=== PATIENT | male | born 1950 | race Caucasian/White ===

== ENCOUNTER → 2023-10-19 06:42 | Outpatient (REF) | payer MEDICARE, BC, SELFPAY ==
[2023-10-19 07:26] LABS: % Basophils 1.4 % (0-2); % Eosinophils 4.8 % (0-6); % Immature Granulocytes 0.2 % (0-0.5); % Lymphocytes 26.1 % (20.5-51.1); % Monocytes 10.9 % (1.7-9.3); % Neutrophils 56.6 % (42.2-75.2); Absolute Basophils 0.1 10^3/uL (0-0.2); Absolute Eosinophils 0.2 10^3/uL (0-0.7); Absolute Lymphocytes 1.3 10^3/uL (1.2-3.4); Absolute Monocytes 0.6 10^3/uL (0.1-0.6); Absolute Neutrophils 2.9 10^3/uL (1.4-6.5); Hematocrit 37.5 % (39.0-52.0); Hemoglobin 12.7 g/dL (13.0-18.0); Mean Corp Hgb Conc. 33.9 g/dL (33.0-37.0); Mean Corpuscular Hgb 30.6 pg (27.0-31.0); Mean Corpuscular Volume 90.4 fL (80.0-94.0); Mean Platelet Volume 11.4 fL (7.4-10.4); Nucleated Red Blood Cells % 0 % (-); Platelet Count 147 10^3/uL (130-400); Red Blood Cell Count 4.15 10^6/uL (4.70-6.10); Red Cell Dist. Width 12.4 % (11.5-14.5); White Blood Cell Count 5.1 10^3/uL (4.8-10.8)
[2023-10-19 08:16] LABS: ALT (SGPT) 19 U/L (0-50); AST (SGOT) 24 U/L (17-59); Albumin 3.9 g/dl (3.5-5.0); Alkaline Phosphatase 86 U/L (38-126); Blood Urea Nitrogen 21 mg/dl (9-20); Calcium 8.8 mg/dl (8.4-10.2); Carbon Dioxide 29 mmol/L (22-30); Chloride 103 mmol/L (98-107); Glucose 124 mg/dl (70-99); HDL Cholesterol 40 mg/dl; LDL Cholesterol, Calculated 102 mg/dl; Potassium 4.1 mmol/L (3.5-5.1); Sodium 137 mmol/L (135-145); Total Bilirubin 1.3 mg/dl (0.2-1.3); Total Cholesterol 163 mg/dl (50-199); Total Protein 6.4 g/dl (6.3-8.2); Triglyceride 106 mg/dl (10-149); Very Low Density Lipoprotein 21 mg/dl (0-30); eGFR 58.73
[2023-10-19 08:35] LABS: TSH Reflex To Free T4 1.98 uIU/ml (0.47-4.68)
[2023-10-19 08:59] LABS: Glycohemoglobin (HgbA1c) 6.8 % (4.0-5.6)
[2023-10-19 10:40] LABS: Microalbumin, Random Urine 2.2 mg/dl (0.6-1.7); Microalbumin/creatinine Ratio 16.2 mg/g
[2023-10-20 14:56] LABS: Iron 92 ug/dl (49-181)
[2023-10-20 15:05] LABS: Percent Saturation 32 % (20-50); Total Iron Binding Capacity 281 ug/dl (261-462)
[2023-10-20 15:33] LABS: Ferritin 40.7 ng/ml (17.9-464.0)
[2023-10-20 15:48] LABS: Vitamin B12 275 pg/ml (239-931)
[2023-10-20 17:09] LABS: Folate 4.9 ng/ml (2.76-20)
== END ==
LOC: REG 06:42
PROVIDERS: ATTENDING PHYSICIAN Registered Nurse
DX: E21.3 Hyperparathyroidism, unspecified (principal); E11.29 Type 2 diabetes mellitus with other diabetic kidney complication; E78.2 Mixed hyperlipidemia; I10 Essential (primary) hypertension; D64.9 Anemia, unspecified; Z79.899 Other long term (current) drug therapy
CPT/HCPCS: 36415; 80053; 80061; 82043; 82570; 82607; 82728; 82746; 83036; 83540; 83550; 84443; 85025

== ENCOUNTER → 2023-12-22 12:11 | Outpatient (REF) | payer MEDICARE, BC, SELFPAY ==
[2023-12-22 14:07] LABS: % Basophils 0.5 % (0-2); % Eosinophils 1.2 % (0-6); % Immature Granulocytes 0.3 % (0-0.5); % Lymphocytes 19.1 % (20.5-51.1); % Monocytes 13.3 % (1.7-9.3); % Neutrophils 65.6 % (42.2-75.2); Absolute Eosinophils 0.1 10^3/uL (0-0.7); Absolute Lymphocytes 1.2 10^3/uL (1.2-3.4); Absolute Monocytes 0.8 10^3/uL (0.1-0.6); Hematocrit 40.8 % (39.0-52.0); Hemoglobin 13.5 g/dL (13.0-18.0); Mean Corp Hgb Conc. 33.1 g/dL (33.0-37.0); Mean Corpuscular Hgb 30.1 pg (27.0-31.0); Mean Corpuscular Volume 90.9 fL (80.0-94.0); Mean Platelet Volume 11.4 fL (7.4-10.4); Nucleated Red Blood Cells % 0 % (-); Platelet Count 165 10^3/uL (130-400); Red Blood Cell Count 4.49 10^6/uL (4.70-6.10); Red Cell Dist. Width 12.5 % (11.5-14.5)
[2023-12-22 14:47] LABS: ALT (SGPT) 20 U/L (0-50); AST (SGOT) 23 U/L (17-59); Albumin 4.3 g/dl (3.5-5.0); Alkaline Phosphatase 85 U/L (38-126); Blood Urea Nitrogen 18 mg/dl (9-20); Calcium 9.4 mg/dl (8.4-10.2); Carbon Dioxide 33 mmol/L (22-30); Chloride 99 mmol/L (98-107); Glucose 107 mg/dl (70-99); Potassium 4.6 mmol/L (3.5-5.1); Sodium 136 mmol/L (135-145); Total Protein 7.1 g/dl (6.3-8.2); eGFR 58.37
== END ==
LOC: RAD 12:11
PROVIDERS: ATTENDING PHYSICIAN Nurse Practitioner Adult Health
DX: R05.1 Acute cough (principal); R06.02 Shortness of breath; J02.9 Acute pharyngitis, unspecified; R68.89 Other general symptoms and signs
CPT/HCPCS: 36415; 71046; 80053; 85025

== ENCOUNTER → 2024-02-16 08:00 | Outpatient (REF) | payer MEDICARE, BC, SELFPAY ==
[2024-02-16 08:43] LABS: % Basophils 1.3 % (0-2); % Eosinophils 3.6 % (0-6); % Immature Granulocytes 0.2 % (0-0.5); % Lymphocytes 25.9 % (20.5-51.1); % Monocytes 11.1 % (1.7-9.3); % Neutrophils 57.9 % (42.2-75.2); Absolute Basophils 0.1 10^3/uL (0-0.2); Absolute Eosinophils 0.2 10^3/uL (0-0.7); Absolute Lymphocytes 1.2 10^3/uL (1.2-3.4); Absolute Monocytes 0.5 10^3/uL (0.1-0.6); Absolute Neutrophils 2.8 10^3/uL (1.4-6.5); Hemoglobin 13.3 g/dL (13.0-18.0); Mean Corp Hgb Conc. 34.1 g/dL (33.0-37.0); Mean Corpuscular Hgb 30.2 pg (27.0-31.0); Mean Corpuscular Volume 88.6 fL (80.0-94.0); Mean Platelet Volume 10.9 fL (7.4-10.4); Nucleated Red Blood Cells % 0 % (-); Platelet Count 179 10^3/uL (130-400); Red Cell Dist. Width 12.9 % (11.5-14.5); White Blood Cell Count 4.8 10^3/uL (4.8-10.8)
[2024-02-16 10:23] LABS: Albumin 4.2 g/dl (3.5-5.0); Blood Urea Nitrogen 25 mg/dl (9-20); Calcium 9.2 mg/dl (8.4-10.2); Carbon Dioxide 26 mmol/L (22-30); Chloride 105 mmol/L (98-107); Glucose 109 mg/dl (70-99); Phosphorus 3.4 mg/dl (2.5-4.5); Sodium 139 mmol/L (135-145)
[2024-02-16 11:11] LABS: Vitamin B12 870 pg/ml (239-931)
[2024-02-16 12:09] LABS: Urine Protein 5 mg/dl (0-12)
== END ==
LOC: REG 08:00
PROVIDERS: ATTENDING PHYSICIAN Internal Medicine; FAMILY PHYSICIAN Registered Nurse
DX: D64.9 Anemia, unspecified (principal); N18.1 Chronic kidney disease, stage 1
CPT/HCPCS: 36415; 80069; 82570; 82607; 84156; 85025

== ENCOUNTER → 2024-03-07 06:36 | Day surgery (SDC) | payer MEDICARE, BC, SELFPAY ==
[2024-03-07 08:24] LABS: Glucose - Point of Care 102 mg/dl (70-99)
== END ==
LOC: GI 06:36
PROVIDERS: ATTENDING PHYSICIAN Internal Medicine Gastroenterology; FAMILY PHYSICIAN Registered Nurse
DX: Z12.11 Encounter for screening for malignant neoplasm of colon (principal); D12.2 Benign neoplasm of ascending colon; Q43.8 Other specified congenital malformations of intestine; R11.0 Nausea; K29.50 Unspecified chronic gastritis without bleeding
CPT/HCPCS: 45380; 43239; 88305; 82962; 88342

== ENCOUNTER → 2024-04-02 06:41 | Outpatient (REF) | payer MEDICARE, BC, SELFPAY ==
[2024-04-02 08:03] LABS: % Basophils 1.2 % (0-2); % Eosinophils 4.5 % (0-6); % Immature Granulocytes 0.2 % (0-0.5); % Lymphocytes 22.3 % (20.5-51.1); % Monocytes 10.1 % (1.7-9.3); % Neutrophils 61.7 % (42.2-75.2); Absolute Basophils 0.1 10^3/uL (0-0.2); Absolute Eosinophils 0.2 10^3/uL (0-0.7); Absolute Lymphocytes 1.1 10^3/uL (1.2-3.4); Absolute Monocytes 0.5 10^3/uL (0.1-0.6); Hematocrit 36.6 % (39.0-52.0); Hemoglobin 12.7 g/dL (13.0-18.0); Mean Corp Hgb Conc. 34.7 g/dL (33.0-37.0); Mean Corpuscular Hgb 31.1 pg (27.0-31.0); Mean Corpuscular Volume 89.5 fL (80.0-94.0); Mean Platelet Volume 11.9 fL (7.4-10.4); Nucleated Red Blood Cells % 0 % (-); Platelet Count 166 10^3/uL (130-400); Red Blood Cell Count 4.09 10^6/uL (4.70-6.10); Red Cell Dist. Width 12.6 % (11.5-14.5); White Blood Cell Count 4.8 10^3/uL (4.8-10.8)
[2024-04-02 08:30] LABS: ALT (SGPT) 17 U/L (0-50); AST (SGOT) 23 U/L (17-59); Albumin 3.9 g/dl (3.5-5.0); Alkaline Phosphatase 81 U/L (38-126); Blood Urea Nitrogen 19 mg/dl (9-20); Calcium 9.4 mg/dl (8.4-10.2); Carbon Dioxide 27 mmol/L (22-30); Chloride 105 mmol/L (98-107); Glucose 116 mg/dl (70-99); HDL Cholesterol 31 mg/dl; LDL Cholesterol, Calculated 101 mg/dl; Potassium 4.4 mmol/L (3.5-5.1); Sodium 140 mmol/L (135-145); Total Bilirubin 1.3 mg/dl (0.2-1.3); Total Cholesterol 151 mg/dl (50-199); Total Protein 6.4 g/dl (6.3-8.2); Triglyceride 98 mg/dl (10-149); Very Low Density Lipoprotein 19 mg/dl (0-30)
[2024-04-02 09:00] LABS: TSH Reflex To Free T4 1.54 uIU/ml (0.47-4.68)
[2024-04-02 09:11] LABS: Vitamin D, 25-OH*** 48.5 ng/mL (30-80)
[2024-04-02 09:19] LABS: Vitamin B12 896 pg/ml (239-931)
[2024-04-02 10:56] LABS: Glycohemoglobin (HgbA1c) 6.4 % (4.0-5.6)
[2024-04-04 10:55] LABS: Intact PTH 90.1 pg/ml (13.6-85.8)
== END ==
LOC: REG 06:41
PROVIDERS: ATTENDING PHYSICIAN Registered Nurse
DX: E11.29 Type 2 diabetes mellitus with other diabetic kidney complication (principal); E21.3 Hyperparathyroidism, unspecified; I25.10 Atherosclerotic heart disease of native coronary artery without angina pectoris; N18.32 Chronic kidney disease, stage 3b; D64.9 Anemia, unspecified; E53.8 Deficiency of other specified B group vitamins
CPT/HCPCS: 36415; 80053; 80061; 82306; 82607; 83036; 83970; 84443; 85025

== ENCOUNTER 2024-09-05 06:23 | Day surgery (SDC) | payer MEDICARE, BC, SELFPAY ==
[2024-09-05 09:12] VITALS: BMI 24.9
[2024-09-05 09:14] VITALS: BP 144/58
[2024-09-05 09:38] LABS: Glucose - Point of Care 120 mg/dl (70-99)
[2024-09-05 11:54] VITALS: BP 113/48
[2024-09-05 12:00] VITALS: BP 124/56
[2024-09-05 12:15] VITALS: BP 132/55
[2024-09-05 12:26] VITALS: BP 136/42
== END 2024-09-05 12:34 | disposition home or self-care (01) ==
LOC: SDS 06:23
PROVIDERS: ATTENDING PHYSICIAN Internal Medicine Gastroenterology
DX: Q39.9 Congenital malformation of esophagus, unspecified (principal); R13.10 Dysphagia, unspecified
CPT/HCPCS: 43236; 82962; J0585

== ENCOUNTER → 2024-10-05 06:24 | Outpatient (REF) | payer MEDICARE, BC, SELFPAY ==
[2024-10-05 07:37] LABS: % Eosinophils 5.6 % (0-6); % Immature Granulocytes 0.3 % (0-0.5); % Lymphocytes 20.5 % (20.5-51.1); % Monocytes 10.2 % (1.7-9.3); % Neutrophils 62.4 % (42.2-75.2); Absolute Basophils 0.1 10^3/uL (0-0.2); Absolute Eosinophils 0.3 10^3/uL (0-0.7); Absolute Lymphocytes 1.2 10^3/uL (1.2-3.4); Absolute Monocytes 0.6 10^3/uL (0.1-0.6); Absolute Neutrophils 3.8 10^3/uL (1.4-6.5); Hematocrit 39.8 % (39.0-52.0); Hemoglobin 13.5 g/dL (13.0-18.0); Mean Corp Hgb Conc. 33.9 g/dL (33.0-37.0); Mean Corpuscular Hgb 29.7 pg (27.0-31.0); Mean Corpuscular Volume 87.7 fL (80.0-94.0); Mean Platelet Volume 11.8 fL (7.4-10.4); Nucleated Red Blood Cells % 0 % (-); Platelet Count 178 10^3/uL (130-400); Red Blood Cell Count 4.54 10^6/uL (4.70-6.10); Red Cell Dist. Width 12.6 % (11.5-14.5); White Blood Cell Count 6.1 10^3/uL (4.8-10.8)
[2024-10-05 08:08] LABS: ALT (SGPT) 23 U/L (0-50); AST (SGOT) 28 U/L (17-59); Albumin 4.4 g/dl (3.5-5.0); Alkaline Phosphatase 84 U/L (38-126); Blood Urea Nitrogen 27 mg/dl (9-20); Calcium 9.7 mg/dl (8.4-10.2); Carbon Dioxide 34 mmol/L (22-30); Chloride 98 mmol/L (98-107); Glucose 130 mg/dl (70-99); Potassium 4.5 mmol/L (3.5-5.1); Sodium 138 mmol/L (135-145); Total Bilirubin 1.8 mg/dl (0.2-1.3); Total Protein 7.4 g/dl (6.3-8.2)
[2024-10-05 08:46] LABS: Glycohemoglobin (HgbA1c) 7.1 % (4.0-5.6)
[2024-10-05 11:49] LABS: Microalbumin, Random Urine 1.9 mg/dl (0.6-1.7)
[2024-10-05 11:55] LABS: Microalbumin/creatinine Ratio 18.1 mg/g
== END ==
LOC: REG 06:24
PROVIDERS: ATTENDING PHYSICIAN Registered Nurse
DX: E11.29 Type 2 diabetes mellitus with other diabetic kidney complication (principal); N18.32 Chronic kidney disease, stage 3b
CPT/HCPCS: 36415; 80053; 82043; 82570; 83036; 85025

== ENCOUNTER 2025-03-06 08:15 | Inpatient (IN) | payer MEDICARE, BC, SELFPAY ==
[2025-03-04 19:15] VITALS: BP 134/49
[2025-03-04 19:21] VITALS: BP 147/57
[2025-03-04 19:45] LABS: Hematocrit 34.2 % (39.0-52.0); Hemoglobin 11.9 g/dL (13.0-18.0); Mean Corp Hgb Conc. 34.8 g/dL (33.0-37.0); Mean Corpuscular Volume 86.8 fL (80.0-94.0); Nucleated Red Blood Cells % 0 % (-); Platelet Count 155 10^3/uL (130-400); Red Cell Dist. Width 12.1 % (11.5-14.5)
[2025-03-04 20:03] LABS: ALT (SGPT) 21 U/L (0-50); AST (SGOT) 22 U/L (17-59); Albumin 4.1 g/dl (3.5-5.0); Alkaline Phosphatase 71 U/L (38-126); Blood Urea Nitrogen 18 mg/dl (9-20); Calcium 9.0 mg/dl (8.4-10.2); Carbon Dioxide 26 mmol/L (22-30); Chloride 103 mmol/L (98-107); Glucose 145 mg/dl (70-99); Potassium 3.6 mmol/L (3.5-5.1); Sodium 137 mmol/L (135-145); Total Protein 6.6 g/dl (6.3-8.2); eGFR 53.07
[2025-03-04 20:09] LABS: Troponin I < 0.012 ng/ml
[2025-03-04 22:23] VITALS: BP 131/54
--- NOTE | 2025-03-04 22:32 | ED.GENMED ---
History of Present Illness
General
Chief Complaint: Breathing Problem
Source: patient
Exam Limitations: none
Time Seen by Provider: 03/04/25 22:20
History of Present Illness
History of Present Illness:
See MDM
Past History
Past History
ED Past Medical History: CVA, HTN, Hypercholesterolemia and Other (Aortic Dissection)
ED Past Surgical History: Cardiac (Aortic dissection), Orthopedic and Other (Hernia)
Social History
Tobacco: Non-smoker
Personal:
Living: with family
Employment: Employed
Family History
Family History: Other (Noncontributory)
Phy Exam
Physical Exam
Physical Exam:
See MDM
Scores
Heart Failure Risk
Heart Failure Risk Score: Yes
History of Stroke or TIA: No
History of intubation for respiratory distress: No
Heart rate on ED arrival >/= 110: No
SaO2 <90% on arrival on room air: No
HR >/=110 during 3min walk test (or too ill to perform test): No
ECG has acute ischemic changes: No
Urea >/=12mmol/L (BUN 33.6mg/dL): No
Serum CO2>/=35mmol/L: No
Troponin I or T elevated to WA Level (0.4mg/dL): No
NT-proBNP >/=5,000ng/L (5,000pg/ml): No
HF Risk Score: 0
Admission Status: LOW RISK 2.8% Consider discharge to home with f/u visit to PCP/[facility]
Course
Orders/Labs/Results
Orders:
Orders
03/04/25 19:19
ECG [Electrocardiogram (*1)] Urgent
Reason for Study: Chest Pain
EKG- Treatment ONCE
03/04/25 19:38
Complete Blood Count/With Diff Urgent
Comprehensive Metabolic Panel Urgent
NT-proBNP Urgent
Troponin I Urgent
03/04/25 22:31
CT Chest Angio W/wo Iv Contras Urgent
Comment: hx Type A dissection in 1999
Reason For Exam: SOB with exertion
03/04/25 23:29
Azithromycin 500 mg/250 ml [Zithromax Infusion] 500 mg in 250 ml IV NOW
CefTRIAXone [Rocephin] 1,000 mg IV NOW STA
Abnormal Lab Results
03/04/25
19:38
RBC 3.94 L 10^6/uL
(4.70-6.10)
Hgb 11.9 L g/dL
(13.0-18.0)
Hct 34.2 L %
(39.0-52.0)
MPV 11.9 H fL
(7.4-10.4)
Absolute Lymphs (auto) 1.1 L 10^3/uL
(1.2-3.4)
Absolute Monos (auto) 1.0 H 10^3/uL
(0.1-0.6)
Lymphocytes % 13.9 L %
(20.5-51.1)
Monocytes % 12.5 H %
(1.7-9.3)
Creatinine 1.4 H mg/dL
(0.7-1.3)
Glucose 145 H mg/dl
(70-99)
Total Bilirubin 2.2 H mg/dl
(0.2-1.3)
03/04/25 19:38
03/04/25 19:38
Vital Signs
Initial and Last Documented VS:
Initial Vital Signs
Temp Pulse Resp BP Pulse Ox
98.0 F 60 20 134/49 98
03/04/25 19:15 03/04/25 19:15 03/04/25 19:15 03/04/25 19:15 03/04/25 19:15
Last Documented Vital Signs
Temp Pulse Resp BP Pulse Ox
98.0 F 60 20 147/57 97
03/04/25 19:15 03/04/25 19:15 03/04/25 19:15 03/04/25 19:21 03/04/25 22:41
MDM/Problems Addressed
Differential Diagnosis Includes:
Note:
CHIEF COMPLAINT(S)
Shortness of breath since yesterday.
HISTORY OF PRESENT ILLNESS
The patient is a 74-year-old male with a history of aortic dissection (Type A) repaired in 1999. He presents with shortness of breath, which started yesterday. He has no known history of heart disease or cardiac stents. The patient is worried about
the implications given his past medical history and states, 'I went to [facility] for his checkup one month ago,' where a computed tomography scan and echocardiogram were performed and reported as normal. He is currently taking clopidogrel. He explicitly
denies any current or past smoking habits. He reports that in a recent checkup, there were no new issues noted with his aortic valve, which remains tus[place] and untreated. Patient states he has a known murmur in his aortic valve but his surgeon
states that he is not a great surgical candidate given his prior history. Patient states that shortness of breath is worse with laying flat.
ADDITIONAL HISTORY OBTAINED FROM SOURCES OTHER THAN THE PATIENT
- Family History: The patient mentioned three cousins with a history of aortic dissection, although one was apparently secondary to a traumatic event.
CHRONIC MEDICAL CONDITIONS SIGNIFICANTLY AFFECTING CARE
History of aortic dissection (Type A) repaired in 1999.
FAMILY HISTORY
The patient reports a familial pattern of aortic dissection affecting three cousins.
MEDICATIONS
Clopidogrel (Plavix).
SOCIAL HISTORY
The patient denies any history of smoking.
REVIEW OF SYSTEMS
- Cardiovascular: History of aortic dissection, no chest pain currently, no murmurs detected in the past.
- Respiratory: Complains of shortness of breath.
- Family history: Positive for aortic dissection in family members.
PHYSICAL EXAM
General: Well appearing and non-toxic
HEENT: protecting airway
Neck: appears supple
CV: No evidence of cyanosis. Regular rate and rhythm
Resp: No accessory muscle use. No crackles noted
Abd: Non-distended
Extremities: No deformities. No edema to lower extremities
Neuro: alert
Psych: Normal affect
Skin: Intact
Nursing notes reviewed and vital signs reviewed.
PROBLEM LIST
- Acute: Shortness of breath.
- Chronic: History of aortic dissection (Type A).
PLAN
- Perform blood work, including troponin, to evaluate for potential myocardial infarction.
- Conduct a computed tomography scan to check for issues related to the aorta or other potential causes of the symptoms.
- Review past medical records, including recent echocardiogram and computed tomography scans from [facility], if available.
- Consider discharge if troponin levels and computed tomography scan are normal.
DIFFERENTIAL DIAGNOSIS
The Differential Diagnosis includes, in no particular order and is not limited to:
1. Myocardial ischemia or infarction.
2. Pulmonary embolism.
3. Aortic dissection recurrence or complications.
4. Congestive heart failure.
5. Chronic obstructive pulmonary disease exacerbation.
6. Pneumonia.
7. Anxiety or panic attack.
8. Anemia.
9. Asthma.
10. Gastroesophageal reflux disease (GERD).
EKG
My independent EKG interpretation is:
- Rhythm: Sinus rhythm
- Heart Rate: 66 beats per minute
- [place]: Normal axis
CARE-UPDATE
03/04/25 - 23:[address] scan indicates a stable chronic thoracic aortic dissection, with no changes from previous imaging. Newly identified is a left lower lobe pneumonia, coinciding with the patients recent viral infection and increased cough. Considering the
patients exertional symptoms and medical history, initiate IV antibiotics.
Disposition:
SUMMARY OF ENCOUNTER
The patient, a 74-year-old male with a history of aortic dissection, presented to the emergency department with shortness of breath concerns. A CT scan revealed a stable chronic thoracic aortic dissection but detected new left lower lobe pneumonia.
Due to concern about the progression of symptoms and the identification of pneumonia, the plan was to initiate intravenous antibiotics. Based on the patients medical history and current pneumonia diagnosis, a decision was made to admit the patient
for further evaluation and management.
DISPOSITION
Admit
ASSESSMENT
The patient presents with shortness of breath likely attributable to a new diagnosis of left lower lobe pneumonia, superimposed on a background of chronic thoracic aortic dissection.
PLAN
Admit the patient for inpatient care with initiation of IV antibiotics targeting the pneumonia and monitoring for any potential complications related to his chronic aortic dissection.
INDEPENDENT REVIEW OF LABS AND INTERPRETATION OF TESTS
My independent interpretation of the CT scan confirms chronic thoracic aortic dissection and newly identified left lower lobe pneumonia.
MANAGEMENT OF THE PATIENTS CARE WAS DISCUSSED WITH
Discussed the case with the hospitalist to coordinate inpatient management focused on the treatment of pneumonia and monitoring for further complications.
MEDICAL DECISION MAKING
-Complexity of Data Reviewed: Chronic conditions affecting care include aortic dissection and the acute condition of pneumonia. The differential diagnosis considered risks for myocardial ischemia, pulmonary embolism, CHF, COPD exacerbation, and
other potential respiratory or cardiac events.
-Data:
Category 1
Clinical condition and imaging (CT scan) discussed in the context of chronic aortic dissection.
Category 3
Discussed patient management with the hospitalist to ensure optimal inpatient care.
DIAGNOSIS
- Left lower lobe pneumonia (J18.1)
- Chronic thoracic aortic dissection (I71.01)
*Pulse Oximetry
SaO2: 98
Oxygen Mode of Delivery: Room air
Patient hypoxic: no
*Critical Care Note
Total Time (30-74mins, 75-104mins- exclusive of procedures): Not Applicable
ED Attending Note
-
Portions of this chart may have been created with voice recognition software.� Occasional wrong word or��sound alike� substitutions may have occurred due to the inherent limitations of voice recognition software.
Discharge Plan
Departure
Patient Disposition: Admit
Date of Disposition: 03/04/25
Time of Disposition: 23:31
Admit to: Med/Surg
Presentation/result/management discussed w/ accepting MD/DO: Hospitalist
Discharge Problem:
Left lower lobe pneumonia, Exertional dyspnea
Prescriptions:
No Action
cyanocobalamin (vitamin B-12) 1,000 MCG tablet
1,000 mcg PO DAILY
pantoprazole 40 MG tablet,delayed release (DR/EC)
40 mg PO HS
metformin 500 MG tablet
500 mg PO BID@0800,1700 0RF
atorvastatin 20 MG tablet
40 mg PO QPM 0RF
metoprolol tartrate 50 MG tablet
50 mg PO BID 0RF
lisinopril 20 MG tablet
40 mg PO HS Qty: 0 0RF
Rx Instructions:
hold systolic blood pressure <130 while on Oxycodone
clopidogrel 75 MG tablet
75 mg PO DAILY Qty: 0 0RF
Rx Instructions:
next dose 5/20
amoxicillin 200 MG tablet,chewable
2,000 mg PO DAILY PRN (Reason: dental procedure)
hydrochlorothiazide 12.5 MG tablet
12.5 mg PO DAILY
polyethylene glycol 3350 17 GRAMS powder in packet
17 grams PO DAILYPRN PRN (Reason: constipation) Qty: 1 0RF
acetaminophen [Tylenol Extra Strength] 500 MG tablet
1,000 mg PO Q6HPRN PRN (Reason: mild pain) Qty: 1 0RF
Referrals:
All Colon CRNP [Family Provider, Internal Medicine]
Interventions
Interventions:
*Risk Screen - Suicide Last Done: 03/04/25 22:40
*General Assessment Last Done: 03/04/25 19:15
*Neglect/Abuse Screening Last Done: 03/04/25 22:40
ED- Cardiac Assessment Last Done: 03/04/25 22:41
ED- Pulmonary Assessment Last Done: 03/04/25 22:41
Discharge Date and Time
Print Language: CZECH
[2025-03-04 22:40] VITALS: BMI 26.6
[2025-03-05] VITALS (13 sets, daily range): BP systolic 107–141; BP diastolic 40–67; PULSE 61; O2SAT 96; BMI 26.1
[2025-03-05] MEDS: ZITHROMAX INFUSION 250 IV ×2 (00:08→22:17)
[2025-03-05] MEDS: ROCEPHIN 1000 MG IV ×2 (00:08→22:17)
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
[2025-03-05] MEDS: LOPRESSOR PO (06:09)
[2025-03-05] MEDS: LOPRESSOR 50 MG PO ×2 (06:09→19:42)
[2025-03-05 06:38] LABS: Hematocrit 29.2 % (39.0-52.0); Hemoglobin 10.5 g/dL (13.0-18.0); Mean Corp Hgb Conc. 36.0 g/dL (33.0-37.0); Mean Corpuscular Volume 85.4 fL (80.0-94.0); Platelet Count 120 10^3/uL (130-400); Red Cell Dist. Width 12.2 % (11.5-14.5)
[2025-03-05 06:47] LABS: Blood Urea Nitrogen 17 mg/dl (9-20); Calcium 8.3 mg/dl (8.4-10.2); Carbon Dioxide 24 mmol/L (22-30); Chloride 108 mmol/L (98-107); Estimated Creatinine Clearance 49 ml/min; Glucose 117 mg/dl (70-99); Potassium 4.0 mmol/L (3.5-5.1); Sodium 138 mmol/L (135-145); eGFR 58.01
--- NOTE | 2025-03-05 07:59 | W.PN.HOSP.TC ---
Today's Communication/Plan
-
see A/P
Assessment / Plan
Assessment / Plan
HPI: 74-year-old gentleman with past medical history significant for aortic dissection who presented to the emergency department secondary to shortness of breath and dyspnea on exertion for 2-3 days. He also cannot lay flat as he 'cannot breathe'
when lying flat. No LE edema, no weight changes. The patient reports that he had a workup 1 month ago at [facility] including CT scan and echocardiogram and he reports them as normal.
ED treatment IV azithromycin and IV Rocephin
CT Angio on admission:
1. MILD LEFT LOWER LOBE PNEUMONIA with new mild airspace consolidation in the posterior basilar segment of the left lower lobe. Subsegmental atelectasis or scarring are considered less likely.
2. CHRONIC THORACIC AORTIC DISSECTION extending through the thoracic aortic arch, descending thoracic aorta, and into the abdominal aorta which appears unchanged from 01/30/2024.
3. Graft in the proximal ascending thoracic aorta which appears unchanged.
4. Severe calcific atherosclerotic plaque in the coronary arteries.
5. 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
A/P:
# New left lower lobe pneumonia, likely community acquired, gram negative bacterial pneumonia
Check Procal, COVID, MRSA screen, Urine Legionella/Strep Ag, sputum culture
no evidence of hypoxia or respiratory failure
Cont IV Rocephin/IV Azithromycin for now
Cont supportive care
# Orthopnea
no overt signs of heart failure, no evidence for cardiac ischemia on EKG, normal trop
Noted BNP at 1060, can try IV Lasix 20 mg x1 dose
obtain recent echo from [facility]
# Thoracoabdominal aortic dissection s/p repair [address] scan shows a stable chronic thoracic aortic dissection, with no changes from previous imaging
continue Plavix
# CAD
plavix, BB
# CVA
# mitral regurgitation, non-operable
# Essential hypertension
cont metoprolol, lisinopril, HCTZ
# hyperlipidemia - statin no longer on home med list- will med rec in am
# type 2 diabetes mellitus
cont metformin BID
# CHETAN
# GERD
PPI daily
DVT proph- Lovenox
Full Code
DW RN
Anticipated Discharge: 24 - 48 hours
Subjective/Interval History
-
Date of Service: March 05, 2025
Objective Data
-
Labs:
Laboratory Results
03/04/25 03/05/25
19:38 06:16
WBC 6.6
Hgb 10.5 L
Hct 29.2 L
Plt Count 120 L D
Sodium 137 138
Potassium 3.6 4.0
Chloride 103 108 H
Carbon Dioxide 26 24
BUN 18 17
Creatinine 1.4 H 1.3
Glucose 145 H 117 H
Calcium 9.0 8.3 L
Total Bilirubin 2.2 H
AST 22
ALT 21
Alkaline Phosphatase 71
Vital Signs:
Vital Signs
Temp Pulse Resp BP Pulse Ox
37.0 C 63 22 128/54 96
03/05/25 07:00 03/05/25 07:00 03/05/25 07:00 03/05/25 07:00 03/05/25 07:00
Review of Systems
-
History Source: Patient
Respiratory: Reports Trouble Breathing
Physical Exam
-
General: Well Developed, Well Nourished, No Apparent Distress, Comfortable and Conversant; Negative Respiratory Distress
HEENT: Normocephalic, Atraumatic, Nose Appears Normal and Ears Appear Normal; Negative Oxygen
Respiratory: Clear to Auscultation and Non Labored Respirations; Negative Accessory Resp Muscle Use
Cardiac: Regular Rhythm, S1/S2 and Murmur (systolic)
GI: Soft, Nontender, Nondistended and Normal Bowel Sounds
Musculoskeletal: Negative Edema, Right Lower Extrem or Edema, Left Lower Extrem
Skin: Warm and Dry
Neuro: Awake, Alert, Oriented and AO x 3
Psych: Calm and Intact Judgement/Insight
Data Reviewed
-
CT Scan: Report Reviewed by me
Labs: Labs Reviewed by me
[2025-03-05] MEDS: PROTONIX 40 MG PO (08:57)
[2025-03-05 09:05] LABS: Glucose - Point of Care 132 mg/dl (70-99)
[2025-03-05] MEDS: NOVOLOG FLEXPEN-LOW RESISTANCE SC ×2 (09:28→17:10)
[2025-03-05 09:41] LABS: COVID-19 Antigen Negative (Negative)
--- NOTE | 2025-03-05 10:21 | CM ---
Addendum entered by Daisy Roque 03/05/25 10:28:
Await PT eval
Original Note:
Patient seen at bedside
IA completed
RECINOS form explained & signed - in chart
DX: LLL bacterial CAP
PMH: aortic dissection
Lives in a multistory home with , 4 [address], 12 steps to bedroom/bath
PLOF: Independent
DME: Walker, cane, shower chair
Denies insecurities
Denies VN/states outpatient PT in past
PCP: All [facility]
Pharmacy: [facility]
PLAN: home, no needs anticipated, CM to continue to follow
[2025-03-05] MEDS: ORETIC 12.5 MG PO (11:17)
[2025-03-05] MEDS: GLUCOPHAGE 500 MG PO (11:17)
[2025-03-05] MEDS: PLAVIX 75 MG PO (11:18)
[2025-03-05] MEDS: LASIX 20 MG IV (11:22)
[2025-03-05 12:47] LABS: Glucose - Point of Care 193 mg/dl (70-99)
[2025-03-05] MEDS: NOVOLOG FLEXPEN-LOW RESISTANCE 1 UNITS SC (13:07)
[2025-03-05 15:40] LABS: Procalcitonin < 0.05 ng/ml (0.0-0.25)
[2025-03-05] MEDS: LIPITOR 40 MG PO (17:10)
[2025-03-05] MEDS: LOVENOX 40 MG SC (17:10)
[2025-03-05 17:21] LABS: Glucose - Point of Care 118 mg/dl (70-99)
[2025-03-05 21:44] LABS: Glucose - Point of Care 154 mg/dl (70-99)
[2025-03-05] MEDS: STERILE WATER FOR INJECTION 10 ML IV (22:16)
[2025-03-05] MEDS: ZESTRIL 40 MG PO (22:19)
[2025-03-06 03:10] VITALS: BP 132/54
[2025-03-06 07:15] VITALS: BP 129/66
[2025-03-06] MEDS: PROTONIX 40 MG PO (07:50)
[2025-03-06 08:03] LABS: Hematocrit 33.9 % (39.0-52.0); Hemoglobin 11.8 g/dL (13.0-18.0); Mean Corp Hgb Conc. 34.8 g/dL (33.0-37.0); Mean Corpuscular Volume 86.3 fL (80.0-94.0); Platelet Count 134 10^3/uL (130-400); Red Cell Dist. Width 12.2 % (11.5-14.5)
[2025-03-06 08:37] LABS: Blood Urea Nitrogen 24 mg/dl (9-20); Calcium 8.7 mg/dl (8.4-10.2); Carbon Dioxide 29 mmol/L (22-30); Chloride 102 mmol/L (98-107); Estimated Creatinine Clearance 37 ml/min; Glucose 129 mg/dl (70-99); Magnesium 2.0 mg/dl (1.6-2.3); Potassium 3.8 mmol/L (3.5-5.1); Sodium 136 mmol/L (135-145); eGFR 42.04
[2025-03-06 08:58] LABS: Glucose - Point of Care 139 mg/dl (70-99)
[2025-03-06] MEDS: ORETIC 12.5 MG PO (09:38)
[2025-03-06] MEDS: NOVOLOG FLEXPEN-LOW RESISTANCE SC (09:38)
[2025-03-06] MEDS: LOPRESSOR 50 MG PO ×2 (09:39→20:39)
[2025-03-06] MEDS: PLAVIX 75 MG PO (09:39)
--- NOTE | 2025-03-06 11:50 | W.PN.HOSP.TC ---
Today's Communication/Plan
-
see A/P
Assessment / Plan
Assessment / Plan
HPI: 74-year-old gentleman with past medical history significant for aortic dissection who presented to the emergency department secondary to shortness of breath and dyspnea on exertion for 2-3 days. He also cannot lay flat as he 'cannot breathe'
when lying flat. No LE edema, no weight changes. The patient reports that he had a workup 1 month ago at [place] including CT scan and echocardiogram and he reports them as normal.
ED treatment IV azithromycin and IV Rocephin
CT Angio on admission:
1. MILD LEFT LOWER LOBE PNEUMONIA with new mild airspace consolidation in the posterior basilar segment of the left lower lobe. Subsegmental atelectasis or scarring are considered less likely.
2. CHRONIC THORACIC AORTIC DISSECTION extending through the thoracic aortic arch, descending thoracic aorta, and into the abdominal aorta which appears unchanged from 01/30/2024.
3. Graft in the proximal ascending thoracic aorta which appears unchanged.
4. Severe calcific atherosclerotic plaque in the coronary arteries.
5. 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
A/P:
# New left lower lobe pneumonia, likely community acquired
Procal negative
COVID negative, Urine Legionella/Strep Ag negative
Follow MRSA screen,
Check sputum culture if able to obtain
no evidence of hypoxia or respiratory failure
Cont IV Rocephin/IV Azithromycin for now
Add PO prednisone 40 mg x5 days
Cont supportive care
# Orthopnea
# Chest pain, ?related to chronic thoracic aortic dissection
no overt signs of heart failure, no evidence for cardiac ischemia on EKG
normal trop
Noted BNP at 1060, s/p IV Lasix 20 mg x1 dose
echo from [place] 02/08/2025: EF 60-65%, grade 1 diastolic dysfunction, mild MR, Mod AR, PASP 31 mm Hg
# Thoracoabdominal aortic dissection s/p repair [address] scan shows stable chronic thoracic aortic dissection, with no changes from previous imaging
continue Plavix
# CAD
Plavix, BB
# CVA
# mitral regurgitation, non-operable
# Essential hypertension
cont metoprolol, lisinopril, HCTZ
# hyperlipidemia - statin no longer on home med list- will med rec in am
# type 2 diabetes mellitus
cont metformin BID
# CHETAN
# GERD
PPI daily
DVT proph- Lovenox
Full Code
Dispo: PT recc likely no PT need
DW RN
total time spent 51 min
Anticipated Discharge: 24 - 48 hours
Subjective/Interval History
-
Date of Service: March 06, 2025
Objective Data
-
Labs:
Laboratory Results
03/06/25
07:37
WBC 6.6
Hgb 11.8 L
Hct 33.9 L
Plt Count 134
Sodium 136
Potassium 3.8
Chloride 102
Carbon Dioxide 29
BUN 24 H
Creatinine 1.7 H
Glucose 129 H
Calcium 8.7
Vital Signs:
Vital Signs
Temp Pulse Resp BP Pulse Ox
36.8 C 68 16 129/66 95
03/06/25 07:15 03/06/25 07:15 03/06/25 07:15 03/06/25 07:15 03/06/25 07:15
I&O
03/05/25 03/06/25 03/07/25
06:59 06:59 06:59
Intake Total 600 / 600
Output Total 1025 / 1025
Balance -425 / -425
Review of Systems
-
History Source: Patient
Respiratory: Reports Cough (intermittent) and Trouble Breathing
Cardiac: Reports Chest Pain (worse with breathing )
Physical Exam
-
General: Well Developed, Well Nourished, No Apparent Distress, Comfortable and Conversant; Negative Respiratory Distress
HEENT: Normocephalic, Atraumatic, Nose Appears Normal and Ears Appear Normal; Negative Oxygen
Respiratory: Clear to Auscultation and Non Labored Respirations; Negative Accessory Resp Muscle Use
Cardiac: Regular Rhythm, S1/S2 and Murmur (systolic)
GI: Soft, Nontender, Nondistended and Normal Bowel Sounds
Musculoskeletal: Negative Edema, Right Lower Extrem or Edema, Left Lower Extrem
Skin: Warm and Dry
Neuro: Awake, Alert, Oriented and AO x 3
Psych: Calm and Intact Judgement/Insight
Data Reviewed
-
CT Scan: Report Reviewed by me
Labs: Labs Reviewed by me
Old Records: Requested and Reviewed
[2025-03-06 12:01] VITALS: BP 130/59
--- NOTE | 2025-03-06 12:27 | CM ---
Patient seen at bedside
tt from [facility] - LOC change to inpatient
IMM explained & signed. In chart
PLAN: Home, no needs anticipated when medically stable, CM to continue to follow
[2025-03-06 12:30] LABS: Glucose - Point of Care 178 mg/dl (70-99)
[2025-03-06] MEDS: NOVOLOG FLEXPEN-LOW RESISTANCE 1 UNITS SC (12:57)
[2025-03-06] MEDS: DELTASONE 40 MG PO (12:57)
[2025-03-06 14:21] LABS: Troponin I < 0.012 ng/ml
[2025-03-06 14:54] VITALS: BP 127/56
--- NOTE | 2025-03-06 15:07 | PTCARENOTE ---
Received pt from [facility] care via ; accompanied by volunteer. Pt AO x3, WYATT well, ambulatory to bed, no c/o weakness/dizziness. VSS. Placed on telemetry: NSR, occ PAC's'PVC's. On room air- pulse ox95%, pt denines SOB. Abd soft, rounded, BS
(+). Pt states he will void in BR. Afebrile; skin W/D/I. Oriented to 4east, currently resting comfortably. at bedside. Will continue to monitor.
[2025-03-06 16:50] LABS: Glucose - Point of Care 235 mg/dl (70-99)
[2025-03-06] MEDS: LIPITOR 40 MG PO (17:59)
[2025-03-06] MEDS: NOVOLOG FLEXPEN-LOW RESISTANCE 2 UNITS SC (18:00)
[2025-03-06] MEDS: LOVENOX 40 MG SC (18:31)
[2025-03-06 19:28] VITALS: BP 120/45
[2025-03-06 21:17] LABS: Glucose - Point of Care 360 mg/dl (70-99)
[2025-03-06] MEDS: ZITHROMAX INFUSION 250 IV (22:02)
[2025-03-06] MEDS: STERILE WATER FOR INJECTION 10 ML IV (22:02)
[2025-03-06] MEDS: ROCEPHIN 1000 MG IV (22:02)
[2025-03-06] MEDS: ZESTRIL 40 MG PO (22:12)
[2025-03-06 23:52] VITALS: BP 125/54
[2025-03-07 03:49] VITALS: BP 124/53
[2025-03-07 07:55] VITALS: BP 121/57
[2025-03-07 07:58] LABS: Blood Urea Nitrogen 34 mg/dl (9-20); Calcium 9.2 mg/dl (8.4-10.2); Carbon Dioxide 24 mmol/L (22-30); Chloride 105 mmol/L (98-107); Estimated Creatinine Clearance 45 ml/min; Glucose 160 mg/dl (70-99); Potassium 4.2 mmol/L (3.5-5.1); Sodium 136 mmol/L (135-145); eGFR 53.07
[2025-03-07 08:00] LABS: Hematocrit 33.2 % (39.0-52.0); Hemoglobin 11.7 g/dL (13.0-18.0); Mean Corp Hgb Conc. 35.2 g/dL (33.0-37.0); Mean Corpuscular Volume 86.9 fL (80.0-94.0); Platelet Count 165 10^3/uL (130-400); Red Cell Dist. Width 11.9 % (11.5-14.5)
[2025-03-07] MEDS: DELTASONE 40 MG PO (08:41)
[2025-03-07] MEDS: ORETIC 12.5 MG PO (08:41)
[2025-03-07] MEDS: PROTONIX 40 MG PO (08:41)
[2025-03-07] MEDS: LOPRESSOR 50 MG PO (08:41)
[2025-03-07] MEDS: PLAVIX 75 MG PO (08:41)
[2025-03-07] MEDS: NOVOLOG FLEXPEN-LOW RESISTANCE SC (08:47)
[2025-03-07 08:51] LABS: Glucose - Point of Care 148 mg/dl (70-99)
--- NOTE | 2025-03-07 10:09 | W.PN.HOSP.TC ---
Addendum entered and electronically signed by Aline Wilkins MD 03/07/25 14:27:
# CKD 3
Addendum entered and electronically signed by Aline Wilkins MD 03/07/25 14:26:
total DC time 38 min
Original Note:
Today's Communication/Plan
-
DC home today
see A/P
Assessment / Plan
Assessment / Plan
HPI: 74-year-old gentleman with past medical history significant for aortic dissection who presented to the emergency department secondary to shortness of breath and dyspnea on exertion for 2-3 days. He also cannot lay flat as he 'cannot breathe'
when lying flat. No LE edema, no weight changes. The patient reports that he had a workup 1 month ago at [facility] including CT scan and echocardiogram and he reports them as normal.
ED treatment IV azithromycin and IV Rocephin
CT Angio on admission:
1. MILD LEFT LOWER LOBE PNEUMONIA with new mild airspace consolidation in the posterior basilar segment of the left lower lobe. Subsegmental atelectasis or scarring are considered less likely.
2. CHRONIC THORACIC AORTIC DISSECTION extending through the thoracic aortic arch, descending thoracic aorta, and into the abdominal aorta which appears unchanged from 01/30/2024.
3. Graft in the proximal ascending thoracic aorta which appears unchanged.
4. Severe calcific atherosclerotic plaque in the coronary arteries.
5. 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
A/P:
# New left lower lobe pneumonia, ?viral
Procal negative
COVID negative, Urine Legionella/Strep Ag negative, MRSA screen negative ,
Check sputum culture if able to obtain
no evidence of hypoxia or respiratory failure
pt was started with IV Rocephin/IV Azithromycin for 3 days, can cont Cefdinir and azithromycin for 2 more days following discharge
Cont PO prednisone 40 mg x5 days total
Cont supportive care
# Orthopnea
# Chest pain, ?related to chronic thoracic aortic dissection
no overt signs of heart failure, no evidence for cardiac ischemia on EKG
normal trop x2
Noted BNP at 1060, s/p IV Lasix 20 mg x1 dose
echo from [facility] 02/08/2025: EF 60-65%, grade 1 diastolic dysfunction, mild MR, Mod AR, PASP 31 mm Hg
# Thoracoabdominal aortic dissection s/p repair [address] scan shows stable chronic thoracic aortic dissection, with no changes from previous imaging
continue Plavix
# CKD stage 3
# CAD
Plavix, BB
# CVA
# mitral regurgitation, non-operable
# Essential hypertension
cont metoprolol, lisinopril, HCTZ
# hyperlipidemia - statin no longer on home med list- will med rec in am
# type 2 diabetes mellitus
cont metformin BID
# CHETAN
# GERD
PPI daily
DVT proph- Lovenox
Full Code
Dispo: PT recc likely no PT need
updated on the phone
Anticipated Discharge: Today
Subjective/Interval History
-
Date of Service: March 07, 2025
Objective Data
-
Labs:
Laboratory Results
03/07/25
06:40
WBC 7.2
Hgb 11.7 L
Hct 33.2 L
Plt Count 165 D
Sodium 136
Potassium 4.2
Chloride 105
Carbon Dioxide 24
BUN 34 H
Creatinine 1.4 H
Glucose 160 H
Calcium 9.2
Vital Signs:
Vital Signs
Temp Pulse Resp BP Pulse Ox
36.4 C 55 14 121/57 97
03/07/25 07:55 03/07/25 07:55 03/07/25 07:55 03/07/25 07:55 03/07/25 07:55
I&O
03/06/25 03/07/2503/08/25
06:59 06:59 06:59
Intake Total 600 / 600 1679
Output Total 1025 / 1025
Balance -425 / -425 1679
Review of Systems
-
History Source: Patient
Respiratory: Reports Cough (intermittent and improved ); Denies Trouble Breathing
Cardiac: Reports Chest Pain (chronic and stable )
Physical Exam
-
General: Well Developed, Well Nourished, No Apparent Distress, Comfortable and Conversant; Negative Respiratory Distress
HEENT: Normocephalic, Atraumatic, Nose Appears Normal and Ears Appear Normal; Negative Oxygen
Respiratory: Clear to Auscultation and Non Labored Respirations; Negative Accessory Resp Muscle Use
Cardiac: Regular Rhythm, S1/S2 and Murmur (systolic)
GI: Soft, Nontender, Nondistended and Normal Bowel Sounds
Musculoskeletal: Negative Edema, Right Lower Extrem or Edema, Left Lower Extrem
Skin: Warm and Dry
Neuro: Awake, Alert, Oriented and AO x 3
Psych: Calm and Intact Judgement/Insight
Data Reviewed
-
CT Scan: Report Reviewed by me
Labs: Labs Reviewed by me
Old Records: Requested and Reviewed
[2025-03-07 11:34] LABS: Glucose - Point of Care 250 mg/dl (70-99)
[2025-03-07 11:43] VITALS: BP 143/60
[2025-03-07] MEDS: NOVOLOG FLEXPEN-LOW RESISTANCE 3 UNITS SC (11:53)
--- NOTE | 2025-03-07 14:20 | PN.CDI ---
CDI
- -
CDI:
Physician Documentation Request
Admit Date: 03/06/25 08:15
Dear Doctor Franky,
Please review the following and provide your response in the progress notes.
Clinical Indicators:
- Patient admit with LLL pneumonia
- Per H&P, No pmh of renal disease
- 03/07 PN 'CKD stage 3'
Laboratory Tests
03/05/25 03/06/25 03/07/25
06:16 07:37 06:40
Creatinine 1.3 1.7 H 1.4 H
eGFR 58.01 42.04 53.07
Please clarify which of the following accurately represents the patient's renal status:
JESSICA
JESSICA on CKD 3
Other (please specify)
Criteria for JESSICA*
1 Increase in serum creatinine by > or = to 0.3 mg/dL (> or = to 26.5 micromol/L) within 48 hours, OR
2 Increase in serum creatinine to > or = to 1.5 times baseline, which is known or presumed to have occurred within 7 days, OR
3 Urine volume < 0.5 nL/kg/hour for six hours
Stages of Chronic Kidney Disease*
Level Description GFR
G1 Normal or High >90
G2 Mildly decreased 60-89
G3a Mildly to moderately decreased 45-59
G3b Moderately to severely decreased 30-44
G4 Severely decreased 15-29
G5 Kidney failure <15
Use of terms such as suspected, likely, concern for, or probable (associated with a specific diagnosis that is being evaluated, monitored, or treated as if it exists) are acceptable and can be coded in the inpatient setting, when documented at the
time of discharge.
Thank you,
Nikki Caldwell RN
CDI Specialist
Please use your independent medical judgment in providing your response.
*Source: Kidney Disease: Improving Global Outcomes (KDIGO) 2012
--- NOTE | 2025-03-07 14:21 | W.DCSUMMARY ---
Discharge Summary
Discharge Data
Date of Admission: 03/06/25
Date of Discharge: 03/07/25
-
Pending Results: No
Hospital Course
Principal Diagnosis:
New left lower lobe pneumonia, ?viral
Chronic Diagnoses:�
Chest pain, likely related to his chronic thoracic aortic dissection
Thoracoabdominal aortic dissection s/p repair 1999. CT this admission showed stable chronic thoracic aortic dissection, with no changes from previous imaging
CKD stage 3.
CAD on Plavix, BB
CVA
Mitral regurgitation, non-operable
Essential hypertension, on metoprolol, lisinopril, HCTZ
Hyperlipidemia
Type 2 diabetes mellitus
CHETAN
GERD
Consultations:�
None
Procedures:�
None
Clinical course:�
This is a 74-year-old gentleman with past medical history as stated above, who presented with shortness of breath and dyspnea for 2-[address] Angio on admission showed:
1. MILD LEFT LOWER LOBE PNEUMONIA with new mild airspace consolidation in the posterior basilar segment of the left lower lobe. Subsegmental atelectasis or scarring are considered less likely.
2. CHRONIC THORACIC AORTIC DISSECTION extending through the thoracic aortic arch, descending thoracic aorta, and into the abdominal aorta which appears unchanged from 01/30/2024.
3. Graft in the proximal ascending thoracic aorta which appears unchanged.
4. Severe calcific atherosclerotic plaque in the coronary arteries.
5. 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
Problem 1:
New left lower lobe pneumonia noted on admission CT scan, possibly viral as his Procal was negative.
His COVID test was negative, Urine Legionella/Strep Ag were negative, and MRSA screen was negative.
He does not have hypoxia or respiratory failure.
He was started with IV Rocephin/IV Azithromycin and had received for 3 days while in the hospital, he can continue Cefdinir and azithromycin for 2 more days following discharge (total antibiotic course 5 days).
He was started with PO prednisone 40 mg, and can continue for 4 more days following discharge (total 5 days).
As for the rest of his medical problems, they were stable during his hospital stay.
Discharge Plan
-
Patient Disposition: Home (Routine Discharge)
Discharge Diagnosis/Procedures: New left lower lobe pneumonia;
Chest pain likely related to chronic stable thoracic aortic dissection;
Thoracoabdominal aortic dissection s/p repair
Condition: Good
Diet: As tolerated, Low Fat, Low Cholesterol and Low Sodium
Activity: As tolerated
Driving Restrictions: As prior to admission
Referrals:
All Colon CRNP [Family Provider, Internal Medicine] - in less than 1 week
Additional Discharge Medication Instructions: Continue Cefdinir and azithromycin for 2 more days
Continue prednisone 40 mg for 4 more days
Prescriptions:
New
prednisone 20 mg Tablet
40 mg PO DAILY 4 Days Qty: 8 0RF
cefdinir 300 mg capsule
300 mg PO Q12H 2 Days Qty: 4 0RF
azithromycin 500 mg tablet
500 mg PO DAILY 2 Days Qty: 2 0RF
Continued
cyanocobalamin (vitamin B-12) 1,000 MCG tablet
500 mcg PO DAILY
pantoprazole 40 MG tablet,delayed release (DR/EC)
40 mg PO DAILY
metoprolol tartrate 50 MG tablet
50 mg PO BID 0RF
lisinopril 20 MG tablet
40 mg PO HS Qty: 0 0RF
Rx Instructions:
hold systolic blood pressure <130 while on Oxycodone
clopidogrel 75 MG tablet
75 mg PO DAILY Qty: 0 0RF
Rx Instructions:
next dose 520
hydrochlorothiazide 12.5 MG tablet
12.5 mg PO DAILY
atorvastatin [Lipitor] 40 mg Tablet
40 mg PO QPM
therapeutic multivitamin Tablet
1 tab PO DAILY
Discharge Orders:
Discharge Patient (As Directed); Ordered 03/07/25
Ordered By: Aline Wilkins
Discharge Date and Time
Print Language: SOUTH SUDANESE
[2025-03-07 15:12] VITALS: BP 120/53
[2025-03-07 16:30] LABS: Glucose - Point of Care 230 mg/dl (70-99)
--- NOTE | 2025-03-07 17:12 | PTCARENOTE ---
Received patient this am AAOx3. Pt OOB ambulating in room independently with a steady gait. Tolerated diet. Clarified patients discharge medications with Dr. Wilkins. Pt was instructed to hold Metformin until seen by PCP secondary to elevated
creatinine at 1.4. Pt offered no complaints. Made patient comfortable. Cont to assess patient status. For discharge today.
== END 2025-03-07 16:45 | disposition home or self-care (01) | DRG 193 ==
LOC: 4 EAST ACU 08:15
PROVIDERS: Emergency Medicine; ADMITTING PHYSICIAN Internal Medicine; ATTENDING PHYSICIAN Internal Medicine; EMERGENCY PHYSICIAN Student in an Organized Health Care Education/Training Program; FAMILY PHYSICIAN Registered Nurse
DX: J12.9 Viral pneumonia, unspecified (principal); I71.019 Dissection of thoracic aorta, unspecified; E78.00 Pure hypercholesterolemia, unspecified; N18.30 Chronic kidney disease, stage 3 unspecified; I12.9 Hypertensive chronic kidney disease with stage 1 through stage 4 chronic kidney disease, or unspecified chronic kidney disease; B34.9 Viral infection, unspecified; E11.22 Type 2 diabetes mellitus with diabetic chronic kidney disease; G43.909 Migraine, unspecified, not intractable, without status migrainosus; G47.33 Obstructive sleep apnea (adult) (pediatric); R06.01 Orthopnea; I25.10 Atherosclerotic heart disease of native coronary artery without angina pectoris; K21.9 Gastro-esophageal reflux disease without esophagitis; K44.9 Diaphragmatic hernia without obstruction or gangrene; I34.0 Nonrheumatic mitral (valve) insufficiency; I25.2 Old myocardial infarction; Z79.02 Long term (current) use of antithrombotics/antiplatelets; Z86.73 Personal history of transient ischemic attack (TIA), and cerebral infarction without residual deficits; Z87.442 Personal history of urinary calculi; Z88.6 Allergy status to analgesic agent; Z88.5 Allergy status to narcotic agent; Z88.8 Allergy status to other drugs, medicaments and biological substances; Z11.52 Encounter for screening for COVID-19
CPT/HCPCS: 71275; 80048; 80053; 82962; 83735; 83880; 84145; 84484; 85025; 85027; 87070; 87449; 87811; 87899; 93005; 96374; 96375; 97162; 99285; Q9967

== ENCOUNTER → 2025-04-04 09:25 | Outpatient (REF) | payer MEDICARE, BC, SELFPAY | LOC: RAD 09:25 | PROVIDERS: ATTENDING PHYSICIAN Registered Nurse | DX: J18.9 Pneumonia, unspecified organism (principal) | CPT/HCPCS: 71046 ==

== ENCOUNTER → 2025-04-08 07:09 | Outpatient (REF) | payer MEDICARE, BC, SELFPAY ==
[2025-04-08 07:53] LABS: Urine Character Clear (Clear)
[2025-04-08 07:57] LABS: Hematocrit 35.3 % (39.0-52.0); Hemoglobin 11.9 g/dL (13.0-18.0); Mean Corp Hgb Conc. 33.7 g/dL (33.0-37.0); Mean Corpuscular Volume 89.4 fL (80.0-94.0); Nucleated Red Blood Cells % 0 % (-); Platelet Count 197 10^3/uL (130-400); Red Cell Dist. Width 12.3 % (11.5-14.5)
[2025-04-08 08:19] LABS: Urine Red Blood Cell 0-2 /HPF (0-2); Urine Urothelial Cell 0-2 /LPF (FEW); Urine White Cell 0-2 /HPF (0-5)
[2025-04-08 08:20] LABS: ALT (SGPT) 23 U/L (0-50); AST (SGOT) 24 U/L (17-59); Albumin 4.0 g/dl (3.5-5.0); Alkaline Phosphatase 79 U/L (38-126); Blood Urea Nitrogen 22 mg/dl (9-20); Calcium 9.5 mg/dl (8.4-10.2); Carbon Dioxide 30 mmol/L (22-30); Chloride 103 mmol/L (98-107); Glucose 129 mg/dl (70-99); HDL Cholesterol 33 mg/dl; LDL Cholesterol, Calculated 113 mg/dl; Potassium 4.6 mmol/L (3.5-5.1); Sodium 139 mmol/L (135-145); Total Protein 6.5 g/dl (6.3-8.2); Very Low Density Lipoprotein 42 mg/dl (0-30); eGFR 45.21
[2025-04-08 08:26] LABS: Calcium 9.5 mg/dl (8.4-10.2)
[2025-04-08 08:35] LABS: Vitamin D, 25-OH*** 32.9 ng/mL (30-80)
[2025-04-08 11:00] LABS: Glycohemoglobin (HgbA1c) 7.8 % (4.0-5.6)
== END ==
LOC: REG 07:09
PROVIDERS: ATTENDING PHYSICIAN Internal Medicine; FAMILY PHYSICIAN Registered Nurse
DX: N18.31 Chronic kidney disease, stage 3a (principal); N18.32 Chronic kidney disease, stage 3b; E78.2 Mixed hyperlipidemia; E21.3 Hyperparathyroidism, unspecified; E11.29 Type 2 diabetes mellitus with other diabetic kidney complication
CPT/HCPCS: 36415; 80053; 80061; 81003; 81015; 82306; 82570; 83036; 83970; 84100; 84156; 84443; 85025

== ENCOUNTER 2025-05-03 19:58 | Emergency (ER) | payer MEDICARE, BC, SELFPAY ==
[2025-05-03 20:00] VITALS: BP 129/53
[2025-05-03 20:21] LABS: Hematocrit 34.4 % (39.0-52.0); Hemoglobin 12.0 g/dL (13.0-18.0); Mean Corp Hgb Conc. 34.9 g/dL (33.0-37.0); Mean Corpuscular Volume 85.4 fL (80.0-94.0); Nucleated Red Blood Cells % 0 % (-); Platelet Count 145 10^3/uL (130-400); Red Cell Dist. Width 12.6 % (11.5-14.5)
[2025-05-03 20:44] LABS: ALT (SGPT) 19 U/L (0-50); AST (SGOT) 22 U/L (17-59); Albumin 4.2 g/dl (3.5-5.0); Alkaline Phosphatase 66 U/L (38-126); Blood Urea Nitrogen 23 mg/dl (9-20); Calcium 9.5 mg/dl (8.4-10.2); Carbon Dioxide 26 mmol/L (22-30); Chloride 103 mmol/L (98-107); Glucose 234 mg/dl (70-99); Potassium 3.5 mmol/L (3.5-5.1); Sodium 136 mmol/L (135-145); Total Protein 6.7 g/dl (6.3-8.2); eGFR 48.85
[2025-05-03 20:50] LABS: Troponin I < 0.012 ng/ml
--- NOTE | 2025-05-03 21:35 | ED.GENMED ---
History of Present Illness
<Tomas Jarrell, DO - Last Filed: 05/04/25 23:00>
General
Chief Complaint: Breathing Problem
Source: patient
Exam Limitations: none
Time Seen by Provider: 05/03/25 21:14
Nursing documentation reviewed up to this point in time: agreed with
History of Present Illness
History of Present Illness:
Note:
CHIEF COMPLAINT(S)
Shortness of breath and a sensation of chest heaviness.
HISTORY OF PRESENT ILLNESS
The patient is a 74-year-old male who presents with complaints of shortness of breath, describing it as 'like someone sitting on me,' which began last night. The symptoms were mild at first but progressively worsened, with no reported fever or
chills. The patient compared the current discomfort to a past episode of pneumonia, though he notes the feeling is different, particularly at the base of the chest. The condition persisted into the day of the visit, prompting the medical evaluation.
PAST MEDICAL AND SURIGICAL HISTORY
The patient reported a heart murmur but denied any history of heart valve surgery.
MEDICATIONS
The patient is on Plavix (clopidogrel).
PHYSICAL EXAM
General: Alert, no acute distress.
Skin: Warm, dry.
Head: Normocephalic, atraumatic.
Neck: Supple, trachea midline.
Eye Ears, nose, mouth and throat: Oral mucosa moist.
Cardiovascular: Normal peripheral perfusion; presence of a heart murmur, as noted on examination, with a projection in the left chest area. No edema.
Respiratory: Respirations are non-labored.
Gastrointestinal: Abdomen nondistended.
Back: Normal range of motion, Normal alignment.
Musculoskeletal: Normal ROM, normal strength.
Neurological: Alert and oriented to person, place, time, and situation, No focal neurological deficit observed.
Psychiatric: Cooperative, appropriate mood & affect.
PROBLEM LIST
Acute Problems:
- Shortness of breath
- Chest sensation resembling pressure or heaviness
PLAN
Further evaluation of the patients respiratory status and possibly cardiac function is needed due to the described symptoms and the presence of a murmur. Consideration for imaging studies or further diagnostic testing to assess for potential causes
such as pneumonia or other cardiopulmonary conditions.
DIFFERENTIAL DIAGNOSIS
The Differential Diagnosis includes, in no particular order and is not limited to:
- Pneumonia
- Acute coronary syndrome
- Heart failure
- Pulmonary embolism
- Chronic obstructive pulmonary disease exacerbation
- Pneumothorax
- Aortic stenosis
- Anemia
- Myocarditis
- Interstitial lung disease
Past History
<Tomas Jarrell, DO - Last Filed: 05/04/25 23:00>
Past History
ED Past Medical History: CVA, HTN, Hypercholesterolemia and Other (Aortic Dissection)
ED Past Surgical History: Cardiac (Aortic dissection), Orthopedic and Other (Hernia)
Social History
Tobacco: Non-smoker
Personal:
Living: with family
Employment: Employed
Family History
Family History: Other (Noncontributory)
Phy Exam
<Tomas Jarrell, DO - Last Filed: 05/04/25 23:00>
Physical Exam
Physical Exam:
.
Scores
<Tomas Jarrell DO - Last Filed: 05/04/25 23:00>
Heart Failure Risk
Heart Failure Risk Score: Not Applicable
Course
<Tomas Jarrell, DO - Last Filed: 05/04/25 23:00>
Orders/Labs/Results
Orders:
Orders
05/03/25 20:05
Electrocardiogram (*1) Urgent
Reason for Study: Shortness of Breath
EKG- Treatment ONCE
Chest [CR Chest - 2 Views ] Urgent
Comment:
Reason For Exam: shortness of breath
05/03/25 20:14
Complete Blood Count/With Diff Urgent
Comprehensive Metabolic Panel Urgent
Troponin I Urgent
05/03/25 22:16
D-Dimer Urgent
05/04/25 00:00
CT Chest W/o Iv Contrast Urgent
Reason For Exam: shortness of breath
05/04/25 01:49
Ipratropium/Albuterol Sulfate [Duoneb] 3 ml INH R NOW ONE
05/04/25 02:38
Troponin I Urgent
05/04/25 02:41
Electrocardiogram (*1) Urgent
Reason for Study: Other
Other Reason for Exam: repeat troponin
EKG- Treatment ONCE
Abnormal Lab Results
05/03/25
20:14
RBC 4.03 L 10^6/uL
(4.70-6.10)
Hgb 12.0 L g/dL
(13.0-18.0)
Hct 34.4 L %
(39.0-52.0)
MPV 11.5 H fL
(7.4-10.4)
BUN 23 H mg/dl
(9-20)
Creatinine 1.5 H mg/dL
(0.7-1.3)
Glucose 234 H mg/dl
(70-99)
Total Bilirubin 1.7 H mg/dl
(0.2-1.3)
05/03/25 20:14
05/03/25 20:14
Vital Signs
Initial and Last Documented VS:
Initial Vital Signs
Temp Pulse Resp BP Pulse Ox
98.0 F 56 18 129/53 96
05/03/25 20:00 05/03/25 20:00 05/03/25 20:00 05/03/25 20:00 05/03/25 20:00
Last Documented Vital Signs
Temp Pulse Resp BP Pulse Ox
98.0 F 57 14 132/54 96
05/03/25 20:00 05/04/25 03:00 05/04/25 03:00 05/03/25 23:00 05/04/25 03:00
<Fransicodirk Link Buster, DO - Last Filed: 05/04/25 03:38>
Orders/Labs/Results
Orders:
Orders
05/03/25 20:05
Electrocardiogram (*1) Urgent
Reason for Study: Shortness of Breath
EKG- Treatment ONCE
Chest [CR Chest - 2 Views ] Urgent
Comment:
Reason For Exam: shortness of breath
05/03/25 20:14
Complete Blood Count/With Diff Urgent
Comprehensive Metabolic Panel Urgent
Troponin I Urgent
05/03/25 22:16
D-Dimer Urgent
05/04/25 00:00
CT Chest W/o Iv Contrast Urgent
Reason For Exam: shortness of breath
05/04/25 01:49
Ipratropium/Albuterol Sulfate [Duoneb] 3 ml INH R NOW ONE
05/04/25 02:38
Troponin I Urgent
05/04/25 02:41
Electrocardiogram (*1) Urgent
Reason for Study: Other
Other Reason for Exam: repeat troponin
EKG- Treatment ONCE
Abnormal Lab Results
05/03/25
20:14
RBC 4.03 L 10^6/uL
(4.70-6.10)
Hgb 12.0 L g/dL
(13.0-18.0)
Hct 34.4 L %
(39.0-52.0)
MPV 11.5 H fL
(7.4-10.4)
BUN 23 H mg/dl
(9-20)
Creatinine 1.5 H mg/dL
(0.7-1.3)
Glucose 234 H mg/dl
(70-99)
Total Bilirubin 1.7 H mg/dl
(0.2-1.3)
05/03/25 20:14
05/03/25 20:14
Vital Signs
Initial and Last Documented VS:
Initial Vital Signs
Temp Pulse Resp BP Pulse Ox
98.0 F 56 18 129/53 96
05/03/25 20:00 05/03/25 20:00 05/03/25 20:00 05/03/25 20:00 05/03/25 20:00
Last Documented Vital Signs
Temp Pulse Resp BP Pulse Ox
98.0 F 57 14 132/54 96
05/03/25 20:00 05/04/25 03:00 05/04/25 03:00 05/03/25 23:00 05/04/25 03:00
<Tomas Jarrell, DO - Last Filed: 05/04/25 23:00>
*Pulse Oximetry
SaO2: 96
Oxygen Mode of Delivery: Room air
Patient hypoxic: no
*Critical Care Note
Total Time (30-74mins, 75-104mins- exclusive of procedures): Not Applicable
<Fransico Goins, DO - Last Filed: 05/04/25 03:38>
Update Note
Update Note:
I evaluated the patient at bedside. The patient's room air sats have remained about 96 to 97%. We had him get up and walk around and they still remain normal. His white count is normal. A D-dimer was obtained that effectively rules out PE.
Noncontrast CT was obtained (renal insufficiency) that shows stable appearance of dissection. I also reviewed old records and CT from January through [facility]. Troponin obtained which was unremarkable despite 24 hours of symptoms. A repeat troponin
was also obtained as he had some ongoing chest discomfort. He has seen [facility] cardiology in the past. We talked about keeping the patient in the hospital however there is no clear indication for admission to the hospital. There is no
evidence of pneumonia. Chronic dissection again noted. He states that his symptoms seem to worsen after he helped his son working in the garage. We talked about the possibility maybe some sort of irritant we tried a DuoNeb however this did not
help much. Second troponin then obtained.
At 3:30 AM, I reassessed patient. 2 troponins are negative. Hyperglycemia is noted the patient is a diabetic. We did talk again about keeping patient in the hospital. However there is no clear indication for admission and room air sats remain
normal. Discharged using close outpatient follow-up with [facility] cardiology. Second EKG is unchanged compared to the first. I did again offer the patient in the hospital for further observation however the patient and ultimately agreed
that there is no clear indication to be kept and felt comfortable going home. We did talk about the positive stress/anxiety however the patient declines an anxiolytic.
ED Attending Note
<Tomas Jarrell, DO - Last Filed: 05/04/25 23:00>
-
Portions of this chart may have been created with voice recognition software.� Occasional wrong word or��sound alike� substitutions may have occurred due to the inherent limitations of voice recognition software.
Discharge Plan
Departure
Patient Disposition: Home (Routine Discharge)
Date of Disposition: 05/04/25
Time of Disposition: 03:35
Patient with high blood pressure during this ER visit?: Yes
Discharge Problem:
Shortness of breath
Instructions: Chest Pain CBC Follow Up, BLOOD PRESSURE
Prescriptions:
No Action
cyanocobalamin (vitamin B-12) 1,000 MCG tablet
500 mcg PO DAILY
pantoprazole 40 MG tablet,delayed release (DR/EC)
40 mg PO DAILY
metoprolol tartrate 50 MG tablet
50 mg PO BID 0RF
lisinopril 20 MG tablet
40 mg PO HS Qty: 0 0RF
Rx Instructions:
hold systolic blood pressure <130 while on Oxycodone
clopidogrel 75 MG tablet
75 mg PO DAILY Qty: 0 0RF
Rx Instructions:
next dose 01/15
hydrochlorothiazide 12.5 MG tablet
12.5 mg PO DAILY
atorvastatin [Lipitor] 40 mg Tablet
40 mg PO QPM
therapeutic multivitamin Tablet
1 tab PO DAILY
metformin 500 mg Tablet
500 mg PO BID
azithromycin 500 mg tablet
500 mg PO
Rx Instructions:
take 4 prior to dental procedure
Referrals:
All Colon CRNP [Family Provider, Internal Medicine]
Matthew Antunez MD [Active, Cardiology]
Activity Restrictions/Additional Instructions:
The cause of your symptoms is unclear. Your white blood cell count is normal. The D-dimer screening test for a blood clot in your lung is negative. CAT scan was obtained which shows no sign of pneumonia. CAT scan does show chronic dissection
with similar measurements as prior. Both the 1st and 2nd cardiac blood test called troponin showed no sign of heart attack. I recommend that you follow-up with [facility] cardiology such as Dr. Antunez. Return here if worse or other concerns.
Interventions
Interventions:
*Risk Screen - Suicide Last Done: 05/03/25 20:00
*General Assessment Last Done: 05/03/25 20:00
*Neglect/Abuse Screening Last Done: 05/03/25 21:52
*ED- Fall Risk Assessment Last Done: 05/03/25 20:00
*ED COVID-19 Vaccine History Last Done: 05/03/25 20:00
*Nursing Disposition Last Done: 05/04/25 04:05
ED- Cardiac Assessment Last Done: 05/03/25 21:52
ED- Pulmonary Assessment Last Done: 05/03/25 21:52
Discharge Date and Time
Discharge Date/Time: 05/04/25 04:06
Print Language: SALVADOREAN
[2025-05-03 21:45] VITALS: BMI 26.2
[2025-05-03 21:47] VITALS: BP 126/48
[2025-05-03 22:00] VITALS: BP 121/54
[2025-05-03 22:43] LABS: D-Dimer 0.47 ug/mlFEU (0.00-0.50)
[2025-05-03 23:00] VITALS: BP 132/54
[2025-05-04] MEDS: DUONEB 3 ML INH (01:54)
[2025-05-04 03:09] LABS: Troponin I < 0.012 ng/ml
== END 2025-05-04 04:06 | disposition home or self-care (01) ==
LOC: EMR 19:58
PROVIDERS: Emergency Medicine; Student in an Organized Health Care Education/Training Program; EMERGENCY PHYSICIAN Emergency Medicine; FAMILY PHYSICIAN Registered Nurse
DX: R06.02 Shortness of breath (principal); E11.65 Type 2 diabetes mellitus with hyperglycemia; E78.00 Pure hypercholesterolemia, unspecified; I10 Essential (primary) hypertension; Z86.73 Personal history of transient ischemic attack (TIA), and cerebral infarction without residual deficits; Z79.02 Long term (current) use of antithrombotics/antiplatelets
CPT/HCPCS: 99285; 94640; 71046; 71250; 80053; 84484; 85025; 85379; 93005

== ENCOUNTER → 2025-05-10 07:31 | Outpatient (REF) | payer MEDICARE, BC, SELFPAY | LOC: HWRCS 07:31 | PROVIDERS: ATTENDING PHYSICIAN Nurse Practitioner; FAMILY PHYSICIAN Registered Nurse | DX: R07.9 Chest pain, unspecified (principal) | CPT/HCPCS: 78452; 93017; A9500; J2785 ==

== ENCOUNTER → 2025-07-12 10:04 | Outpatient (REF) | payer MEDICARE, BC, SELFPAY ==
[2025-07-12 11:15] LABS: Hematocrit 37.7 % (39.0-52.0); Hemoglobin 12.7 g/dL (13.0-18.0); Mean Corp Hgb Conc. 33.7 g/dL (33.0-37.0); Mean Corpuscular Volume 87.5 fL (80.0-94.0); Nucleated Red Blood Cells % 0 % (-); Platelet Count 190 10^3/uL (130-400); Red Cell Dist. Width 12.6 % (11.5-14.5)
[2025-07-12 11:32] LABS: Glycohemoglobin (HgbA1c) 6.8 % (4.0-5.9)
[2025-07-12 11:54] LABS: ALT (SGPT) 24 U/L (0-50); AST (SGOT) 26 U/L (17-59); Albumin 4.3 g/dl (3.5-5.0); Alkaline Phosphatase 59 U/L (38-126); Blood Urea Nitrogen 20 mg/dl (9-20); Calcium 9.4 mg/dl (8.4-10.2); Carbon Dioxide 31 mmol/L (22-30); Chloride 100 mmol/L (98-107); Glucose 103 mg/dl (70-99); Iron 129 ug/dl (49-181); Potassium 4.6 mmol/L (3.5-5.1); Sodium 133 mmol/L (135-145); Total Protein 7.1 g/dl (6.3-8.2); eGFR 48.85
[2025-07-12 12:05] LABS: Total Iron Binding Capacity 302 ug/dl (261-462)
[2025-07-12 12:45] LABS: Vitamin D, 25-OH*** 41.2 ng/mL (30-80)
[2025-07-12 13:03] LABS: Ferritin 43.8 ng/ml (17.9-464.0)
== END ==
LOC: REG 10:04
PROVIDERS: ATTENDING PHYSICIAN Internal Medicine; FAMILY PHYSICIAN Registered Nurse
DX: I10 Essential (primary) hypertension (principal); N18.31 Chronic kidney disease, stage 3a; N25.81 Secondary hyperparathyroidism of renal origin; E11.29 Type 2 diabetes mellitus with other diabetic kidney complication; D64.9 Anemia, unspecified; R73.03 Prediabetes
CPT/HCPCS: 36415; 80053; 82306; 82728; 83036; 83540; 83550; 84100; 85025

== ENCOUNTER → 2025-08-26 09:57 | Outpatient (REF) | payer MEDICARE, BC, SELFPAY ==
[2025-08-26 11:12] LABS: Blood Urea Nitrogen 22 mg/dl (9-20); Calcium 9.1 mg/dl (8.4-10.2); Carbon Dioxide 30 mmol/L (22-30); Chloride 100 mmol/L (98-107); Glucose 117 mg/dl (70-99); Potassium 4.3 mmol/L (3.5-5.1); Sodium 136 mmol/L (135-145); eGFR 53.07
== END ==
LOC: REG 09:57
PROVIDERS: ATTENDING PHYSICIAN Registered Nurse
DX: I11.9 Hypertensive heart disease without heart failure (principal)
CPT/HCPCS: 36415; 80048